=== PATIENT | female | born 1995 | race Caucasian/White ===

== ENCOUNTER → 2020-07-12 | Day surgery (SDC) | payer OTHER ==
[~2020-07-12] MED LIST: HYDROCODONE-AC1 EACH PO; IBUPROFEN600 MG PO; NEXPLANON68 MG VG; VENTOLIN HFA 66.7 GM INH
[2020-07-12 11:39] LABS: HEMOGLOBIN 13.6 gm/dl (12.3-15.3); RED BLOOD COUNT 4.58 M/UL (4.00-5.10); WHITE BLOOD COUNT 6.8 K/UL (4.5-11.0)
== END | disposition home or self-care (01) ==
LOC: OR 10:59
PROVIDERS: Obstetrics & Gynecology
PROC: 0US14ZZ Reposition Left Ovary, Percutaneous Endoscopic Approach (ICD-10-PCS; principal; 2020-07-12 11:55)
PROC: 0UB14ZZ Excision of Left Ovary, Percutaneous Endoscopic Approach (ICD-10-PCS; principal; 2020-07-12 11:55)
DX: N83.202 Unspecified ovarian cyst, left side (principal); N83.512 Torsion of left ovary and ovarian pedicle; Z20.822 Contact with and (suspected) exposure to COVID-19; Z97.5 Presence of (intrauterine) contraceptive device
CPT/HCPCS: 36415; 81001; 84703; 85025; C1769; J1100; J1885; J2001; J2250; J2405; J2704; J2710; J3010; J7120